=== PATIENT | male | born 1925 | race Two or more races ===

== ENCOUNTER → 2016-07-07 | Outpatient (CLI) | payer MEDICARE, OTHER ==
[~2016-07-07] MED LIST: ASPI81 PO; CLOP75 PO; ISOS30TA6 PO; LISI-661 PO; SIMV-261 PO; TRAM50TA4 PO
== END | disposition home or self-care (01) ==
LOC: RADMN 08:51
PROVIDERS: ATTEND Internal Medicine
DX: M25.511 Pain in right shoulder (principal); Z91.81 History of falling
CPT/HCPCS: 73221